=== PATIENT | female | born 1960 | race African-American/Black ===

== ENCOUNTER 2016-12-22 15:17 | Emergency (ER) | payer OTHER ==
[~2016-12-22] VITALS: Ht 175.3 cm; Wt 80.9 kg
[~2016-12-22 15:17] MED LIST: QUET200XR PO
[2016-12-22] MEDS ORDERED: DEXAMETHASONE SOD PHOS 4 MG/ML VIAL IM ONE (16:15)
[2016-12-22] MEDS ORDERED: ACETAMINOPHEN 325 MG TABLET PO ONE (16:15)
[2016-12-22 18:05] VITALS: BP 138/91
== END 2016-12-22 18:08 | disposition home or self-care (01) ==
LOC: EMS 15:18
DX: J02.8 Acute pharyngitis due to other specified organisms (principal); B97.89 Other viral agents as the cause of diseases classified elsewhere; J06.9 Acute upper respiratory infection, unspecified; F17.210 Nicotine dependence, cigarettes, uncomplicated
CPT/HCPCS: 87430; 96372; 99283; J1100

== ENCOUNTER 2023-02-19 13:25 | Emergency (ER) | payer OTHER ==
[~2023-02-19] VITALS: Ht 175.3 cm; Wt 65.9 kg
[~2023-02-19 13:25] MED LIST changes: +QUET200T5 PO; -QUET200XR PO
[2023-02-19 13:50] VITALS: TEMP 97.9
[2023-02-19 14:38] VITALS: BP 128/98; PULSE 84; RESP 16
[2023-02-19 14:59] LABS: INFLUENZA A-RTPCR,COMBO NEGATIVE FOR FLU A (NEGATIVE); INFLUENZA B-RTPCR,COMBO NEGATIVE FOR FLU B (NEGATIVE); RESPIRATORY SYNCYTIAL VRS-PCR NEGATIVE (NEGATIVE); SARS COVID19 RTPCR, COMBO NEGATIVE (NEGATIVE)
[2023-02-19] MEDS ORDERED: IBUP-1492 PO (15:38)
[2023-02-19] MEDS ORDERED: FLUT15.812 NASAL (15:39)
[2023-02-19] MEDS ORDERED: [UNRECOGNIZED DRUG - CODE] OU (15:41)
== END 2023-02-19 15:53 | disposition home or self-care (01) ==
LOC: EMS 13:27
DX: M54.50 Low back pain, unspecified (principal); R09.81 Nasal congestion; G89.29 Other chronic pain; F20.9 Schizophrenia, unspecified; F17.210 Nicotine dependence, cigarettes, uncomplicated; Z88.5 Allergy status to narcotic agent; Z20.822 Contact with and (suspected) exposure to COVID-19
CPT/HCPCS: 99283; 0241U

== ENCOUNTER 2023-06-20 13:08 | Emergency (ER) | payer OTHER ==
[~2023-06-20] VITALS: Ht 175.3 cm; Wt 69.5 kg
[~2023-06-20 13:08] MED LIST changes: +FLUT15.812 NASAL; +IBUP-1492 PO; +[UNRECOGNIZED DRUG - CODE] OU
[2023-06-20] MEDS ORDERED: ROPI2TAB26 PO (13:13)
[2023-06-20] MEDS ORDERED: RAME8TAB24 PO (13:13)
[2023-06-20 16:17] LABS: HEMATOCRIT 24.7 % (36-46); HEMOGLOBIN 7.7 g/dL (12.0-16.0); MEAN CORPUSCULAR HGB CONC 31.3 G/dL (31.0-37.0); MEAN CORPUSCULAR VOLUME 86 fL (80-100); PLATELET COUNT (AUTO) 341 K/uL (150-450); RED BLOOD CELL COUNT(AUTO) 2.87 MIL/uL (4.00-5.20); RED CELL DISTRIBUTION WIDTH 29.6 % (11.5-14.5); WHITE BLOOD COUNT (AUTO) 1.7 K/uL (4.5-11.0)
[2023-06-20 16:53] LABS: ANION GAP 8 mmol/L (8-16); CARBON DIOXIDE 28 mmol/L (22-29); CHLORIDE 104 mmol/L (98-107); GLOMERULAR FILTR. RATE CALC > 60 mL/min (>60); GLUCOSE,RANDOM 109 mg/dL (70-110); POTASSIUM 3.2 mmol/L (3.5-5.1); SODIUM SERUM 140 mmol/L (136-145); UREA NITROGEN, BLOOD 10 mg/dL (7-18)
[2023-06-20 16:59] LABS: ALANINE AMINOTRANSFERASE 38 U/L (12-78); ALBUMIN 3.5 g/dL (3.4-5.0); ALKALINE PHOSPHATASE 70 U/L (46-116); ASPARTATE AMINOTRANSFERASE 25 U/L (15-37); BILIRUBIN,TOTAL 0.7 mg/dL (0.1-1.0); TOTAL PROTEIN, SERUM 6.2 g/dL (6.4-8.2)
[2023-06-20] MEDS: POTASSIUM CHLORIDE 20 MEQ ER TABLET PO ONE (17:19)
[2023-06-20 18:00] LABS: BAND NEUTROPHILS % (MANUAL) 0 % (0-5); BASOPHILS % (MANUAL) 1 % (0-2); LYMPHOCYTES % (MANUAL) 23 % (22-44); MONOCYTES % (MANUAL) 9 % (2-9); SEGMENTED NEUTROPHILS % 67 % (40-70); TOTAL CELLS COUNTED 100
[2023-06-20 18:01] LABS: RBC MORPHOLOGY COMMENT DIMORPHIC
[2023-06-20 21:45] VITALS: BP 148/51; PULSE 80; RESP 18; TEMP 98.5
== END 2023-06-20 22:15 | disposition home or self-care (01) ==
LOC: EMS 13:13
DX: D72.819 Decreased white blood cell count, unspecified (principal); D53.9 Nutritional anemia, unspecified; F41.9 Anxiety disorder, unspecified; R60.0 Localized edema; F20.9 Schizophrenia, unspecified; F17.210 Nicotine dependence, cigarettes, uncomplicated; Z88.5 Allergy status to narcotic agent
CPT/HCPCS: 71045; 80053; 83880; 85025; 99284; 36415-L1; 36415-TC

== ENCOUNTER 2023-12-01 07:44 | Emergency (ER) | payer OTHER ==
[~2023-12-01] VITALS: Ht 177.8 cm; Wt 72.7 kg
[~2023-12-01 07:44] MED LIST changes: +RAME8TAB24 PO; +ROPI2TAB26 PO
[2023-12-01 08:00] VITALS: BP 142/89; PULSE 84; RESP 18; TEMP 98; O2SAT 100
[2023-12-01] MEDS: IBUPROFEN 400 MG TABLET PO ONE (08:54)
== END 2023-12-01 09:10 ==
LOC: EMS 07:45
DX: Z04.89 Encounter for examination and observation for other specified reasons (principal); R07.81 Pleurodynia; R05.9 Cough, unspecified; R09.81 Nasal congestion; F20.9 Schizophrenia, unspecified; F17.210 Nicotine dependence, cigarettes, uncomplicated; Z88.5 Allergy status to narcotic agent; Z79.899 Other long term (current) drug therapy; Y04.8XXA Assault by other bodily force, initial encounter; Y93.89 Activity, other specified; Y92.89 Other specified places as the place of occurrence of the external cause; Y99.8 Other external cause status
CPT/HCPCS: 71045; 99284

== ENCOUNTER 2024-01-15 19:42 | Emergency (ER) | payer OTHER ==
[~2024-01-15] VITALS: Ht 180.3 cm; Wt 63.6 kg
[2024-01-15 19:50] VITALS: TEMP 98.3
[2024-01-15 19:59] VITALS: BP 148/96; PULSE 72; RESP 19; O2SAT 100
[2024-01-15] MEDS ORDERED: AMOX-457 PO (21:05)
[2024-01-15] MEDS ORDERED: IBUP-1492 PO (21:05)
[2024-01-15] MEDS: CefTRIAXone SODIUM 1 GM/VIAL IM ONE (21:09)
[2024-01-15] MEDS: IBUPROFEN 600 MG TABLET PO ONE (21:09)
[2024-01-15] MEDS: LIDOCAINE/PF 1% 2 ML VIAL IM ONE (21:09)
== END 2024-01-15 22:28 | disposition home or self-care (01) ==
LOC: EMS 19:42
DX: S61.307A Unspecified open wound of left little finger with damage to nail, initial encounter (principal); L03.012 Cellulitis of left finger; F20.9 Schizophrenia, unspecified; F17.210 Nicotine dependence, cigarettes, uncomplicated; Z88.5 Allergy status to narcotic agent; Z79.899 Other long term (current) drug therapy; Y04.1XXA Assault by human bite, initial encounter; Y93.89 Activity, other specified; Y92.89 Other specified places as the place of occurrence of the external cause; Y99.8 Other external cause status
CPT/HCPCS: 99283; 29130; 96372; J0696; J3490

== ENCOUNTER 2024-03-21 15:31 | Emergency (ER) | payer OTHER ==
[~2024-03-21] VITALS: Ht 175.3 cm; Wt 59.1 kg
[~2024-03-21 15:31] MED LIST changes: +AMOX-457 PO
[2024-03-21 15:37] VITALS: TEMP 98.2
[2024-03-21] MEDS ORDERED: BACTDSB PO (15:43)
[2024-03-21] MEDS: BACITRACIN 0.9 GM PACKET OINTMENT TP ONE (18:18)
[2024-03-21 18:30] VITALS: BP 125/74; PULSE 85; RESP 17; O2SAT 99
== END 2024-03-21 19:01 | disposition home or self-care (01) ==
LOC: EMS 15:31
DX: Z48.00 Encounter for change or removal of nonsurgical wound dressing (principal); F20.9 Schizophrenia, unspecified; F17.210 Nicotine dependence, cigarettes, uncomplicated; Z88.5 Allergy status to narcotic agent; Z59.00 Homelessness unspecified
CPT/HCPCS: 99283

== ENCOUNTER 2024-04-25 16:22 | Emergency (ER) | payer OTHER ==
[~2024-04-25] VITALS: Ht 180.3 cm; Wt 60.9 kg
[~2024-04-25 16:22] MED LIST changes: -AMOX-457 PO; +BACTDSB PO; -FLUT15.812 NASAL; -IBUP-1492 PO; -QUET200T5 PO; -RAME8TAB24 PO; -ROPI2TAB26 PO; -[UNRECOGNIZED DRUG - CODE] OU
[2024-04-25 16:30] VITALS: BP 102/64; PULSE 103; RESP 18; TEMP 97.6; O2SAT 100
[2024-04-25] MEDS: BACITRACIN 28 GM OINTMENT TP ONE (17:36)
== END 2024-04-25 18:01 | disposition home or self-care (01) ==
LOC: EMS 16:29
DX: S61.210D Laceration without foreign body of right index finger without damage to nail, subsequent encounter (principal); F20.9 Schizophrenia, unspecified; F17.210 Nicotine dependence, cigarettes, uncomplicated; Z48.00 Encounter for change or removal of nonsurgical wound dressing; Z88.5 Allergy status to narcotic agent; X58.XXXD Exposure to other specified factors, subsequent encounter
CPT/HCPCS: 99282; Z7502; Z7610

== ENCOUNTER 2025-01-21 13:25 | Emergency (ER) | payer OTHER ==
[~2025-01-21] VITALS: Ht 175.3 cm; Wt 56.8 kg
[2025-01-21] VITALS (11 sets, daily range): BP systolic 100–138; BP diastolic 48–92; PULSE 80–100; RESP 14–20; TEMP 98–98.9; O2SAT 100
[2025-01-21 14:24] LABS: RED BLOOD CELL COUNT(AUTO) 2.35 MIL/uL (4.00-5.20); RED CELL DISTRIBUTION WIDTH 28.7 % (11.5-14.5); WHITE BLOOD COUNT (AUTO) 2.0 K/uL (4.5-11.0)
[2025-01-21 14:25] LABS: CALCIUM, TOTAL 8.8 mg/dL (8.8-10.5); CREATININE 0.99 mg/dL (0.60-1.30); GLOMERULAR FILTR. RATE CALC > 60 mL/min (>60); GLUCOSE,RANDOM 91 mg/dL (70-110); SODIUM SERUM 138 mmol/L (136-145); UREA NITROGEN, BLOOD 26 mg/dL (7-18)
[2025-01-21] MEDS: ACETAMINOPHEN 325 MG TABLET PO ONE (14:57)
[2025-01-21 14:58] LABS: APPEARANCE,URINE CLEAR (CLEAR); GLUCOSE, URINE (UA) NEGATIVE (NEGATIVE); LEUKOCYTE ESTERASE ,URINE MODERATE (NEGATIVE); NITRATE,URINE NEGATIVE (NEGATIVE); OCCULT BLOOD,URINE NEGATIVE (NEGATIVE); SPECIFIC GRAVITIY, URINE 1.018 (1.003-1.030)
[2025-01-21 15:04] LABS: BAND NEUTROPHILS % (MANUAL) 3 % (0-5); BASOPHILS % (MANUAL) 1 % (0-2); LYMPHOCYTES % (MANUAL) 26 % (22-44); MONOCYTES % (MANUAL) 8 % (2-9); RBC MORPHOLOGY COMMENT ABNORMAL RBC MORPH; SEGMENTED NEUTROPHILS % 62 % (40-70)
[2025-01-21 15:05] LABS: PLATELET COUNT (AUTO) 289 K/uL (150-450)
[2025-01-21] MEDS ORDERED: ONDANSETRON HCL 4 MG/2 ML VIAL IVP PRN (16:00)
[2025-01-21] MEDS ORDERED: ZOLPIDEM TARTRATE 5 MG TABLET PO PRN (16:00)
[2025-01-21] MEDS ORDERED: ACETAMINOPHEN 325 MG TABLET PO PRN (16:00)
[2025-01-21] MEDS ORDERED: DOCUSATE SODIUM 100 MG CAPSULE PO SCH (21:00)
[2025-01-22] MEDS ORDERED: FAMOTIDINE 20 MG TABLET PO SCH (09:00)
== END 2025-01-21 22:09 | disposition admitted as inpatient to this hospital (09) ==
LOC: EMS 13:28 → UNDOADMIN 15:57 → EDH 15:57
DX: D64.9 Anemia, unspecified (principal); F20.9 Schizophrenia, unspecified; Z79.899 Other long term (current) drug therapy
CPT/HCPCS: 99285; 36430; 80048; 81001; 85025; 86850; 86900; 86901; 86923; 36415; 93005; P9016; G0378